=== PATIENT | male | born 1955 | race Native Hawaiian/Other Pacific Islander ===

== ENCOUNTER 2016-12-16 07:23 | Emergency (ER) | payer OTHER ==
[~2016-12-16] VITALS: Ht 180.3 cm; Wt 113.4 kg
[~2016-12-16 07:23] MED LIST: CARDURA8 MG PO; CLONIDINE0.3 MG PO; FLUOXETINE60 MG PO; FORTAMET500 MG PO; GABA300C2 PO; GLIP10TA55 PO; HYDR100TA PO; HYDR25TA60 PO; LIPITOR40 MG PO; MECLIZINE25 MG OR; ZESTRIL40 MG OR
[2016-12-16 08:10] VITALS: BP 167/80; TEMP 97.9
== END 2016-12-16 08:15 | disposition home or self-care (01) ==
LOC: ED 07:23
DX: T81.31XA Disruption of external operation (surgical) wound, not elsewhere classified, initial encounter (principal)
CPT/HCPCS: 99282; J7040

== ENCOUNTER 2017-02-08 14:54 | Emergency (ER) | payer OTHER ==
[~2017-02-08] VITALS: Ht 180.3 cm; Wt 117.9 kg
[2017-02-08 16:23] VITALS: BP 157/83; TEMP 98.4
== END 2017-02-08 16:25 | disposition home or self-care (01) ==
LOC: ED 14:54
DX: Z48.00 Encounter for change or removal of nonsurgical wound dressing (principal)
CPT/HCPCS: 99281

== ENCOUNTER 2017-03-02 10:40 | Emergency (ER) | payer OTHER ==
[~2017-03-02] VITALS: Ht 180.3 cm; Wt 115.7 kg
[2017-03-02 10:58] VITALS: TEMP 97.7
[2017-03-02 13:00] VITALS: BP 152/70
== END 2017-03-02 13:25 | disposition home or self-care (01) ==
LOC: ED 10:40
DX: N39.0 Urinary tract infection, site not specified (principal)
CPT/HCPCS: 81000; 87077; 87086; 87088; 87186; 99283; J1940

== ENCOUNTER 2017-04-18 14:21 | Emergency (ER) | payer OTHER ==
[~2017-04-18] VITALS: Ht 180.3 cm; Wt 117.0 kg
[2017-04-18] MEDS ORDERED: AMLODIPINE BESYLATE PO (14:53)
[2017-04-18 15:34] LABS: PLATELET COUNT 297 K/uL (142-355)
[2017-04-18 15:40] LABS: POTASSIUM 3.8 mmol/L (3.6-5.2); SODIUM 134 mmol/L (136-145)
[2017-04-18 15:46] LABS: PARTIAL THROMBOPLASTIN TIME 22.3 SECONDS (24.5-33.6)
[2017-04-18 16:10] VITALS: BP 149/78; TEMP 97.8
== END 2017-04-18 16:10 | disposition home or self-care (01) ==
LOC: ED 14:21
PROVIDERS: Emergency Medicine
DX: R04.0 Epistaxis (principal); F12.10 Cannabis abuse, uncomplicated; R91.8 Other nonspecific abnormal finding of lung field
CPT/HCPCS: 36415; 80053; 80307; 82550; 84484; 85027; 85610; 85730; 93005; 99283

== ENCOUNTER 2017-06-06 13:28 | Outpatient (CLI) | payer OTHER ==
[~2017-06-06 13:28] MED LIST changes: +AMLODIPINE BESYLATE PO
== END 2017-06-06 18:22 | disposition home or self-care (01) ==
LOC: RESP 13:28
DX: R55 Syncope and collapse (principal); R06.02 Shortness of breath
CPT/HCPCS: 93306

== ENCOUNTER 2017-07-18 10:46 | Outpatient (CLI) | payer OTHER ==
[2017-07-18 11:39] LABS: POTASSIUM 3.9 mmol/L (3.6-5.2)
== END 2017-07-18 21:40 | disposition home or self-care (01) ==
LOC: LABW 10:46
PROVIDERS: Internal Medicine
DX: Z79.899 Other long term (current) drug therapy (principal); Z51.81 Encounter for therapeutic drug level monitoring
CPT/HCPCS: 36415; 80048

== ENCOUNTER 2017-07-20 14:17 | Outpatient (CLI) | payer OTHER ==
[2017-07-20 14:42] LABS: PLATELET COUNT 354 K/uL (142-355)
== END 2017-07-20 22:16 | disposition home or self-care (01) ==
LOC: LABW 14:17
PROVIDERS: Internal Medicine Cardiovascular Disease
DX: I25.10 Atherosclerotic heart disease of native coronary artery without angina pectoris (principal); Z51.81 Encounter for therapeutic drug level monitoring
CPT/HCPCS: 36415; 80048; 85027; 85610

== ENCOUNTER 2017-11-01 10:51 | Outpatient (CLI) | payer OTHER | END 2017-11-01 21:17 | disposition home or self-care (01) | LOC: LABW 10:51 | DX: C61 Malignant neoplasm of prostate (principal) | CPT/HCPCS: 36415; 84154 ==

== ENCOUNTER 2017-12-20 09:18 | Outpatient (CLI) | payer OTHER ==
[2017-12-20 09:58] LABS: PLATELET COUNT 258 K/uL (142-355)
== END 2017-12-20 20:32 | disposition home or self-care (01) ==
LOC: LABW 09:18
PROVIDERS: Internal Medicine
DX: E78.00 Pure hypercholesterolemia, unspecified (principal); Z79.899 Other long term (current) drug therapy; D50.9 Iron deficiency anemia, unspecified
CPT/HCPCS: 36415; 80053; 80061; 85027

== ENCOUNTER 2018-09-18 11:18 | Outpatient (CLI) | payer OTHER | END 2018-09-18 19:22 | disposition home or self-care (01) | LOC: RAD 11:18 | DX: L40.0 Psoriasis vulgaris (principal); L40.59 Other psoriatic arthropathy; L60.3 Nail dystrophy; Z79.899 Other long term (current) drug therapy ==

== ENCOUNTER 2018-12-20 11:24 | Outpatient (CLI) | payer OTHER ==
[2018-12-20 12:04] LABS: PLATELET COUNT 215 K/uL (142-355)
[2018-12-20 12:37] LABS: POTASSIUM 4.6 mmol/L (3.6-5.2)
== END 2018-12-20 22:06 | disposition home or self-care (01) ==
LOC: LABW 11:24
PROVIDERS: Internal Medicine
DX: L08.89 Other specified local infections of the skin and subcutaneous tissue (principal); D64.9 Anemia, unspecified; E83.51 Hypocalcemia
CPT/HCPCS: 36415; 80048; 82306; 82607; 82728; 82747; 83540; 83550; 85027; 85044

== ENCOUNTER 2019-01-26 07:51 | Emergency (ER) | payer OTHER ==
[~2019-01-26] VITALS: Ht 180.3 cm; Wt 108.0 kg
[2019-01-26 08:51] LABS: PLATELET COUNT 282 K/uL (142-355)
[2019-01-26 09:37] VITALS: BP 183/66; TEMP 97.3
== END 2019-01-26 09:40 | disposition home or self-care (01) ==
LOC: ED 07:51
PROVIDERS: Hospitalist
DX: J44.1 Chronic obstructive pulmonary disease with (acute) exacerbation (principal); R11.2 Nausea with vomiting, unspecified; F17.210 Nicotine dependence, cigarettes, uncomplicated
CPT/HCPCS: 36415; 80053; 85027; 87502; 87651; 94664; 96374; 96375; 99284; J2405; J2930

== ENCOUNTER 2019-02-01 19:56 | Emergency (ER) | payer OTHER ==
[~2019-02-01] VITALS: Ht 180.3 cm; Wt 108.9 kg
[2019-02-01 20:08] VITALS: TEMP 97.3
[2019-02-01 21:34] VITALS: BP 114/53
== END 2019-02-01 21:36 | disposition home or self-care (01) ==
LOC: ED 19:56
DX: L27.0 Generalized skin eruption due to drugs and medicaments taken internally (principal); T36.8X5A Adverse effect of other systemic antibiotics, initial encounter; Y92.89 Other specified places as the place of occurrence of the external cause
CPT/HCPCS: 87070; 87205; 99282

== ENCOUNTER 2019-02-06 16:42 | Emergency (ER) | payer OTHER ==
[~2019-02-06] VITALS: Ht 180.3 cm; Wt 108.9 kg
[2019-02-06 18:50] LABS: PLATELET COUNT 207 K/uL (142-355)
[2019-02-06 18:54] LABS: POTASSIUM 4.3 mmol/L (3.6-5.2)
[2019-02-06 21:05] VITALS: BP 149/68; TEMP 97.8
== END 2019-02-06 21:05 | disposition short-term general hospital (02) ==
LOC: ED 16:42
PROVIDERS: Emergency Medicine
DX: N49.2 Inflammatory disorders of scrotum (principal); B95.8 Unspecified staphylococcus as the cause of diseases classified elsewhere; B37.89 Other sites of candidiasis; L08.89 Other specified local infections of the skin and subcutaneous tissue
CPT/HCPCS: 36415; 80053; 83605; 85027; 87040; 87070; 87077; 87185; 87186; 87205; 96365; 99284; J2543

== ENCOUNTER 2019-02-06 21:10 | Outpatient (CLI) | payer OTHER | END 2019-02-06 22:28 | disposition short-term general hospital (02) | LOC: AMB 21:10 | DX: L08.89 Other specified local infections of the skin and subcutaneous tissue (principal) | CPT/HCPCS: A0425; A0429 ==

== ENCOUNTER 2019-03-18 13:17 | Emergency (ER) | payer OTHER ==
[~2019-03-18] VITALS: Ht 180.3 cm; Wt 106.6 kg
[2019-03-18 13:22] VITALS: TEMP 97.7
[2019-03-18 14:46] LABS: PLATELET COUNT 252 K/uL (142-355)
[2019-03-18 14:55] LABS: POTASSIUM 4.2 mmol/L (3.6-5.2)
[2019-03-18 15:25] VITALS: BP 190/82
== END 2019-03-18 15:30 | disposition home or self-care (01) ==
LOC: ED 13:17
PROVIDERS: Family Medicine
DX: K29.70 Gastritis, unspecified, without bleeding (principal); R11.2 Nausea with vomiting, unspecified; E11.65 Type 2 diabetes mellitus with hyperglycemia
CPT/HCPCS: 36415; 80053; 81000; 82150; 83690; 85027; 96374; 96375; 99284; J2405; J3490

== ENCOUNTER 2019-03-22 14:16 | Outpatient (CLI) | payer OTHER ==
[2019-03-22 14:36] LABS: PLATELET COUNT 212 K/uL (142-355)
== END 2019-03-22 18:58 | disposition home or self-care (01) ==
LOC: LABW 14:16
PROVIDERS: Internal Medicine
DX: R10.84 Generalized abdominal pain (principal)
CPT/HCPCS: 36415; 80048; 80076; 81000; 82150; 83690; 85027

== ENCOUNTER 2019-04-07 08:00 | Day surgery (SDC) | payer OTHER ==
[2019-04-07 08:31] LABS: PLATELET COUNT 260 K/uL (142-355)
[2019-04-07 08:39] LABS: POTASSIUM 4.1 mmol/L (3.6-5.2)
== END 2019-04-07 11:16 | disposition home or self-care (01) ==
LOC: OR 08:00
PROVIDERS: Student in an Organized Health Care Education/Training Program
PROC: 0DB48ZZ Excision of Esophagogastric Junction, Via Natural or Artificial Opening Endoscopic (ICD-10-PCS; principal; 2019-04-07)
PROC: 0DB68ZZ Excision of Stomach, Via Natural or Artificial Opening Endoscopic (ICD-10-PCS; 2019-04-07)
DX: K29.50 Unspecified chronic gastritis without bleeding (principal); K44.9 Diaphragmatic hernia without obstruction or gangrene; K21.9 Gastro-esophageal reflux disease without esophagitis; R10.84 Generalized abdominal pain
CPT/HCPCS: 80053; 85027; 93005; J2001; J2250; J2405; J2704

== ENCOUNTER 2019-04-24 13:08 | Emergency (ER) | payer OTHER ==
[~2019-04-24] VITALS: Ht 182.9 cm; Wt 108.9 kg
[2019-04-24 14:11] LABS: PLATELET COUNT 243 K/uL (142-355)
[2019-04-24 14:18] LABS: POTASSIUM 4.2 mmol/L (3.6-5.2)
[2019-04-24 14:24] LABS: PARTIAL THROMBOPLASTIN TIME 24.8 SECONDS (24.5-33.6)
[2019-04-24 17:35] VITALS: BP 142/78; TEMP 98.2
== END 2019-04-24 17:35 | disposition home or self-care (01) ==
LOC: ED 13:08
PROVIDERS: Hospitalist
DX: K29.70 Gastritis, unspecified, without bleeding (principal); K21.9 Gastro-esophageal reflux disease without esophagitis; R11.2 Nausea with vomiting, unspecified; Z90.49 Acquired absence of other specified parts of digestive tract
CPT/HCPCS: 36415; 80053; 81000; 82150; 83690; 85027; 85610; 85730; 93005; 96361; 96365; 96375; 96376; 99284; J1170; J2405; J3490

== ENCOUNTER 2019-12-01 16:09 | Outpatient (CLI) | payer OTHER | END 2019-12-01 19:26 | disposition home or self-care (01) | LOC: LABW 16:09 | PROVIDERS: Internal Medicine | DX: Z79.899 Other long term (current) drug therapy (principal); E87.5 Hyperkalemia | CPT/HCPCS: 36415; 80048 ==

== ENCOUNTER 2020-06-04 09:03 | Outpatient (CLI) | payer OTHER | END 2020-06-04 19:12 | disposition home or self-care (01) | LOC: CT 09:03 | PROVIDERS: ATTEND Internal Medicine | DX: D35.02 Benign neoplasm of left adrenal gland (principal) | CPT/HCPCS: 36415; 82565; 84520; Q9963 ==

== ENCOUNTER 2020-10-29 12:40 | Outpatient (CLI) | payer OTHER | END 2020-10-29 23:13 | disposition home or self-care (01) | LOC: RAD 12:40 | PROVIDERS: ATTEND Nurse Practitioner Family | DX: L40.59 Other psoriatic arthropathy (principal); M47.816 Spondylosis without myelopathy or radiculopathy, lumbar region; Z79.899 Other long term (current) drug therapy ==

== ENCOUNTER 2020-11-27 10:15 | Outpatient (CLI) | payer OTHER | END 2020-11-27 21:12 | disposition home or self-care (01) | LOC: LAB 10:15 | PROVIDERS: ATTEND Internal Medicine Gastroenterology | DX: R19.7 Diarrhea, unspecified (principal) | CPT/HCPCS: 87328; 87329 ==

== ENCOUNTER 2020-12-30 11:50 | Outpatient (CLI) | payer OTHER | END 2020-12-30 20:19 | disposition home or self-care (01) | LOC: RAD 11:50 | PROVIDERS: ATTEND Internal Medicine | DX: R22.42 Localized swelling, mass and lump, left lower limb (principal) ==

== ENCOUNTER 2021-06-29 07:18 | Outpatient (CLI) | payer OTHER | END 2021-06-29 21:32 | disposition home or self-care (01) | LOC: CT 07:18 | PROVIDERS: ATTEND Internal Medicine | DX: D35.02 Benign neoplasm of left adrenal gland (principal) | CPT/HCPCS: 36415; 82565; 84520; Q9963 ==

== ENCOUNTER 2021-12-09 11:36 | Emergency (ER) | payer OTHER ==
[~2021-12-09] VITALS: Ht 182.9 cm; Wt 104.3 kg
[2021-12-09 11:45] VITALS: BP 172/80; TEMP 97
[2021-12-09 13:09] LABS: POTASSIUM 3.2 mmol/L (3.6-5.2)
== END 2021-12-09 13:32 | disposition home or self-care (01) ==
LOC: ED 11:36
PROVIDERS: Emergency Medicine
DX: E87.6 Hypokalemia (principal); E83.42 Hypomagnesemia
CPT/HCPCS: 36415; 80053; 83735; 99282; J3475

== ENCOUNTER 2022-01-31 07:48 | Outpatient (CLI) | payer OTHER | END 2022-01-31 19:53 | disposition home or self-care (01) | LOC: CT 07:48 | PROVIDERS: ATTEND Internal Medicine | DX: F17.210 Nicotine dependence, cigarettes, uncomplicated (principal) ==

== ENCOUNTER 2022-05-27 17:04 | Emergency (ER) | payer OTHER ==
[~2022-05-27] VITALS: Ht 180.3 cm; Wt 95.3 kg
[2022-05-27 17:20] LABS: PLATELET COUNT 316 K/uL (142-355)
[2022-05-27 17:28] LABS: POTASSIUM 4.5 mmol/L (3.6-5.2)
[2022-05-27 17:42] LABS: PARTIAL THROMBOPLASTIN TIME 26.7 SECONDS (24.5-33.6)
[2022-05-27 19:15] VITALS: TEMP 99
[2022-05-27 19:55] VITALS: BP 145/81
== END 2022-05-27 19:55 | disposition short-term general hospital (02) ==
LOC: ED 17:04
PROVIDERS: Emergency Medicine
DX: U07.1 COVID-19 (principal); J12.82 Pneumonia due to coronavirus disease 2019; R09.02 Hypoxemia; J44.9 Chronic obstructive pulmonary disease, unspecified; I48.91 Unspecified atrial fibrillation; I10 Essential (primary) hypertension; F17.210 Nicotine dependence, cigarettes, uncomplicated
CPT/HCPCS: 36600; 80053; 81002; 82550; 82805; 83605; 83735; 83880; 84484; 85027; 85379; 85610; 85730; 87040; 87502; 87635; 93005; 94660; 96365; 96372; 96375; 99284; J1650; J1940; J3475; J3490; U0003

== ENCOUNTER 2022-07-14 15:11 | Observation (INO) | payer OTHER ==
[2022-07-14] VITALS (12 sets, daily range): BP systolic 71–172; BP diastolic 32–58; TEMP 96.8–98.4; Ht 180.3 cm; Wt 90.5 kg
[~2022-07-14] VITALS: Ht 180.3 cm; Wt 90.5 kg
[2022-07-14 16:14] LABS: PLATELET COUNT 235 K/uL (142-355)
[2022-07-15] VITALS: BP 128/47; TEMP 98.2
[2022-07-15 03:37] VITALS: BP 117/42; TEMP 97.7
[2022-07-15 05:26] LABS: PLATELET COUNT 190 K/uL (142-355)
[2022-07-15 05:36] LABS: POTASSIUM 2.8 mmol/L (3.6-5.2)
[2022-07-15 08:00] VITALS: BP 150/56; TEMP 97.7
[2022-07-15] MEDS ORDERED: SLOW MAG PO (09:42)
[2022-07-15] MEDS ORDERED: ELIQUIS5 MG PO (09:43)
[2022-07-15] MEDS ORDERED: CARV12.5 PO (09:43)
[2022-07-15] MEDS ORDERED: PACERONE200 MG PO (09:43)
[2022-07-15] MEDS ORDERED: CRESTOR20 MG PO (09:44)
[2022-07-15] MEDS ORDERED: JARDIANCE10 MG PO (09:44)
[2022-07-15] MEDS ORDERED: COZAAR25 MG PO (09:44)
[2022-07-15] MEDS ORDERED: FLUOXETINE HYDR60 MG PO (09:45)
[2022-07-15] MEDS ORDERED: OXYB5TAB56 PO (09:45)
[2022-07-15] MEDS ORDERED: TAMS0.4C PO (09:46)
[2022-07-15] MEDS ORDERED: PEPCID40 MG PO (09:46)
[2022-07-15] MEDS ORDERED: SPIRONOLACT25 MG PO (09:46)
[2022-07-15] MEDS ORDERED: FURO40TA93 PO (09:47)
[2022-07-15] MEDS ORDERED: FOLIC ACID800 MCG PO (09:47)
[2022-07-15] MEDS ORDERED: [UNRECOGNIZED DRUG - OTHER] PO (09:49)
[2022-07-15] MEDS ORDERED: MIRTAZAPINE7.5 MG PO (09:50)
[2022-07-15] MEDS ORDERED: CYAN10009 IM (09:51)
[2022-07-15 12:00] VITALS: BP 169/65; TEMP 97.7
[2022-07-15 16:00] VITALS: BP 179/71; TEMP 97.6
[2022-07-15 20:00] VITALS: BP 187/72; TEMP 98.1
[2022-07-16] VITALS: BP 162/66; TEMP 97.8
[2022-07-16 04:00] VITALS: BP 166/72; TEMP 98.5
[2022-07-16 05:08] LABS: PLATELET COUNT 166 K/uL (142-355)
[2022-07-16 05:45] LABS: POTASSIUM 3.4 mmol/L (3.6-5.2)
[2022-07-16 08:00] VITALS: BP 190/67; TEMP 97.7
[2022-07-16 12:00] VITALS: BP 189/66; TEMP 98.1
[2022-07-16 16:00] VITALS: BP 193/72; TEMP 97.6
[2022-07-16 20:00] VITALS: BP 193/68; TEMP 97.7
[2022-07-17] VITALS: BP 207/80; BP 220/98; TEMP 98.4
[2022-07-17 03:55] VITALS: BP 165/69; TEMP 97.6
[2022-07-17 08:00] VITALS: BP 177/64; TEMP 97.6
[2022-07-17 09:00] VITALS: BP 155/55; BP 166/57
[2022-07-17 09:01] VITALS: BP 139/60
[2022-07-17 10:20] VITALS: BP 194/73
== END 2022-07-17 12:40 | disposition home or self-care (01) ==
LOC: ED 15:11 → MED/SURG 18:00
PROVIDERS: ADMIT Emergency Medicine; ATTEND Internal Medicine
DX: N17.9 Acute kidney failure, unspecified (principal); K52.89 Other specified noninfective gastroenteritis and colitis; I50.9 Heart failure, unspecified; I49.9 Cardiac arrhythmia, unspecified; E87.1 Hypo-osmolality and hyponatremia; I95.1 Orthostatic hypotension; R19.5 Other fecal abnormalities
CPT/HCPCS: 36415; 80048; 80053; 82948; 83630; 83735; 84484; 85027; 87015; 87045; 87324; 87328; 87329; 87449; 87899; 93005; 96360; 96361; 96366; 96375; 99221; 99284; G0378; J2405

== ENCOUNTER 2022-08-28 12:42 | Observation (INO) | payer OTHER ==
[~2022-08-28] VITALS: Ht 180.3 cm; Wt 92.6 kg
[2022-08-28] VITALS (8 sets, daily range): BP systolic 177–226; BP diastolic 76–90; TEMP 97.9–98.7; Ht 180.3 cm; Wt 92.6 kg
[~2022-08-28 12:42] MED LIST changes: +CARV12.5 PO; +COZAAR25 MG PO; +CRESTOR20 MG PO; +CYAN10009 IM; +ELIQUIS5 MG PO; +FLUOXETINE HYDR60 MG PO; +FOLIC ACID800 MCG PO; +FURO40TA93 PO; +JARDIANCE10 MG PO; +MIRTAZAPINE7.5 MG PO; +OXYB5TAB56 PO; +PACERONE200 MG PO; +PEPCID40 MG PO; +SLOW MAG PO; +SPIRONOLACT25 MG PO; +TAMS0.4C PO; +[UNRECOGNIZED DRUG - OTHER] PO
[2022-08-28 13:40] LABS: PLATELET COUNT 252 K/uL (142-355)
[2022-08-28 13:47] LABS: POTASSIUM 3.2 mmol/L (3.6-5.2)
[2022-08-28] MEDS ORDERED: LOSA50TA PO (20:53)
[2022-08-28] MEDS ORDERED: CARV6.25 PO (20:58)
[2022-08-28] MEDS ORDERED: ROSUVASTATIN CA40 MG PO (21:01)
[2022-08-28] MEDS ORDERED: KP FOLIC ACID1 MG PO (21:03)
[2022-08-28] MEDS ORDERED: FLUOXETINE20 MG PO (21:05)
[2022-08-28] MEDS ORDERED: FLONASE AL50 MCG/ACT NAS (21:09)
[2022-08-29 00:51] VITALS: BP 172/55; TEMP 98
[2022-08-29 04:51] VITALS: BP 180/77; TEMP 98.2
[2022-08-29 08:48] VITALS: BP 193/68; TEMP 97.7
[2022-08-29 11:58] VITALS: BP 206/80; TEMP 98.5
[2022-08-29 16:51] VITALS: BP 218/75; TEMP 98.3
[2022-08-29 20:46] VITALS: BP 211/77; TEMP 98.4
[2022-08-30] VITALS (7 sets, daily range): BP systolic 166–212; BP diastolic 65–77; TEMP 97.7–98.8
[2022-08-30 05:47] LABS: PLATELET COUNT 248 K/uL (142-355)
[2022-08-31 04:00] VITALS: BP 135/59; TEMP 97.9
[2022-08-31 04:52] LABS: PLATELET COUNT 234 K/uL (142-355)
[2022-08-31 05:01] LABS: POTASSIUM 3.1 mmol/L (3.6-5.2)
[2022-08-31 08:51] VITALS: BP 121/76; TEMP 97.5
[2022-08-31] MEDS ORDERED: NORVASC 5MG TAB PO (10:20)
== END 2022-08-31 12:15 | disposition home or self-care (01) ==
LOC: ED 12:42 → MED/SURG 14:42
PROVIDERS: Family Medicine; Internal Medicine Endocrinology, Diabetes & Metabolism; ADMIT Internal Medicine; ATTEND Internal Medicine
DX: I10 Essential (primary) hypertension (principal); R00.1 Bradycardia, unspecified; E87.6 Hypokalemia; N40.0 Benign prostatic hyperplasia without lower urinary tract symptoms; E11.65 Type 2 diabetes mellitus with hyperglycemia; Z87.891 Personal history of nicotine dependence
CPT/HCPCS: 36415; 80048; 80053; 82948; 84484; 85027; 93005; 99221; 99284; G0378; J1815

== ENCOUNTER 2022-12-05 12:20 | Outpatient (CLI) | payer OTHER ==
[~2022-12-05 12:20] MED LIST changes: +CARV6.25 PO; +FLONASE AL50 MCG/ACT NAS; +FLUOXETINE20 MG PO; +KP FOLIC ACID1 MG PO; +LOSA50TA PO; +NORVASC 5MG TAB PO; +ROSUVASTATIN CA40 MG PO
== END 2022-12-05 20:47 | disposition home or self-care (01) ==
LOC: RAD 12:20
PROVIDERS: ATTEND Nurse Practitioner Family
DX: D51.3 Other dietary vitamin B12 deficiency anemia (principal); L40.0 Psoriasis vulgaris; L40.59 Other psoriatic arthropathy; R06.02 Shortness of breath; Z79.899 Other long term (current) drug therapy

== ENCOUNTER 2022-12-20 09:05 | Outpatient (CLI) | payer OTHER | END 2022-12-20 19:21 | disposition home or self-care (01) | LOC: RESP 09:05 | PROVIDERS: ATTEND Nurse Practitioner Family | DX: G47.8 Other sleep disorders (principal); L40.0 Psoriasis vulgaris; R06.02 Shortness of breath; Z79.899 Other long term (current) drug therapy ==